=== PATIENT | female | born 1960 | race Caucasian/White ===

== ENCOUNTER 2019-06-14 08:52 | Inpatient (IN) | payer SELFPAY ==
[2019-06-14] VITALS (11 sets, daily range): BP systolic 114–143; BP diastolic 80–108
[~2019-06-14] VITALS: Ht 162.6 cm; Wt 45.0 kg
[2019-06-14] MEDS ORDERED: ONDANSETRON HCL 4 MG/2 ML VIAL ONE ×6 (09:08→22:22)
[2019-06-14] MEDS ORDERED: FAMOTIDINE/PF 20 MG/2 ML VIAL IV ONE (09:20)
[2019-06-14 09:38] LABS: BASOPHILS % (AUTO) 0.7 % (0.0-5.0); EOSINOPHILS % (AUTO) 0.5 % (0.0-8.0); HEMATOCRIT 46.1 % (36-48); LYMPHOCYTES % (AUTO) 15.4 % (21.0-51.0); MEAN CORPUSCULAR HEMOGLOBIN 30.7 pg (27.0-33.0); MEAN CORPUSCULAR VOLUME 92.9 fL (79-99); MONOCYTES % (AUTO) 5.1 % (3.0-13.0); NEUTROPHILS % (AUTO) 78.3 % (40.0-77.0); NUCLEATED RED BLOOD CELLS 0.1 % (0.0-0.19); PLATELET COUNT (AUTO) 426 K/uL (130-400); RED BLOOD CELL COUNT(AUTO) 4.96 MIL/uL (4.00-5.50); RED CELL DISTRIBUTION WIDTH 14.6 % (11.0-15.5); WHITE BLOOD COUNT (AUTO) 21.1 K/uL (4.8-10.8)
[2019-06-14 09:46] LABS: CREATININE 0.8 mg/dL (0.5-1.5); POTASSIUM 4.5 mmol/L (3.5-5.1)
[2019-06-14 09:50] LABS: ALBUMIN 4.1 g/dL (3.5-5.0); BILIRUBIN,TOTAL 0.3 mg/dL (0.2-1.0); TOTAL PROTEIN, SERUM 7.9 g/dL (6.0-8.3)
[2019-06-14] MEDS ORDERED: MORPHINE SULFATE 2 MG/ML 1ML SYG ONE ×2 (10:18→10:32)
[2019-06-14] MEDS ORDERED: NITROGLYCERIN 0.4 MG SL TAB SL ONE (10:18)
[2019-06-14] MEDS ORDERED: ASPIRIN 325 MG TABLET ONE (10:43)
[2019-06-14] MEDS ORDERED: ENALAPRILAT DIHYDRATE 1.25MG/ML 1ML VIAL IV ONE (10:43)
[2019-06-14] MEDS ORDERED: ENOXAPARIN SODIUM 60 MG/0.6 ML SQ ONE (10:43)
[2019-06-14] MEDS ORDERED: METOPROLOL TARTRATE 1 MG/ML 5ML VIAL IV ONE (10:44)
[2019-06-14] MEDS ORDERED: LIDOCAINE HCL 2% 20ML ONE (11:54)
[2019-06-14] MEDS ORDERED: IOHEXOL-350 50ML VIAL IV ONE (11:54)
[2019-06-14] MEDS ORDERED: HEPARIN SODIUM 1000UNIT/ML 10ML VIAL ONE (11:54)
[2019-06-14] MEDS ORDERED: IOHEXOL 350 MG/ML 100ML INFUS..BTL IV ONE (11:54)
[2019-06-14] MEDS ORDERED: NITROGLYCERIN 5 MG/ML 10 ML VIAL IV ONE (11:54)
[2019-06-14] MEDS ORDERED: VERAPAMIL HCL 2.5 MG/ML VIAL ONE (11:56)
[2019-06-14] MEDS ORDERED: FENTANYL CITRATE PF 50 MCG/1 ML 2ML VIAL ONE (12:06)
[2019-06-14] MEDS ORDERED: MIDAZOLAM HCL 1 MG/ML 2ML VIAL ONE (12:06)
[2019-06-14 12:25] LABS: INR 0.96 (0.85-1.15); PARTIAL THROMBOPLASTIN TIME 24.8 SEC (26.3-35.5); PROTHROMBIN TIME 10.1 SEC (9.6-11.6)
[2019-06-14] MEDS ORDERED: BIVALIRUDIN 250 MG/VIAL IV ONE (12:25)
[2019-06-14] MEDS ORDERED: NITROGLYCERIN 4.1 GM SPRAY TL ONE (12:28)
[2019-06-14] MEDS ORDERED: LABETALOL 20 MG/4 ML DISP.SYRIN IV ONE (12:49)
[2019-06-14] MEDS ORDERED: SODIUM CHLORIDE 0.9% 1000ML 1,000 ML IV SCH (12:53)
[2019-06-14] MEDS ORDERED: ASPIRIN 325 MG TABLET PO SCH (13:00)
[2019-06-14] MEDS ORDERED: LABETALOL HCL 5 MG/ML 20ML VIAL IV SCH (13:15)
--- NOTE | 2019-06-14 13:45 | NUR ---
POST PROCEDURE RECEIVED PT FROM BEE TENDER IN SEMI DINERO'S POSITION, A&OX3, CALM COOPERATIVE AND DOES NOT APPEAR TO BE IN ANY DISTRESS NOR ANY NEURO DEFICITS PRESENT. PT DENIES NAUSEA BUT DOES C/O INTERMITTENT ABDOMINAL PAIN. RT RADIAL PRESSURE DEVICE IN PLACE, PULSE PALPABLE, SITE DRY AND INTACT WITH NO OOZING OR HEMATOMA PRESENT. PT RESTING COMFORTABLY, CALL LIGHT WITHIN REACH.
[2019-06-14] MEDS: SODIUM CHLORIDE 0.9% 1000ML 1,000 ML IV SCH (14:15)
[2019-06-14] MEDS ORDERED: MORPHINE SULFATE 4 MG/1ML SYG ONE (14:17)
--- NOTE | 2019-06-14 15:00 | NUR ---
RADIAL PRESSURE BAND COMPLETE, RT WRIST SOFT NONTENDER WITH NO OOZING OR HEMATOMA PRESENT. STERILE DRESSING APPLIED, PT DENIES PAIN OR NUMBNESS TO RT HAND. CALL LIGHT WITHIN REACH, FAMILY AT BEDSIDE.
[2019-06-14] MEDS ORDERED: PHARMACY COMMUNICATION MISC SCH (15:15)
[2019-06-14] MEDS ORDERED: COMPOUND PO MISCELLANEOUS 1 EACH MISC MISC PRN (16:00)
[2019-06-14] MEDS: LIDOCAINE HCL 2% VISCOUS 30 ML, MAG HYDROX/AL HYDROX/SIMETH 30 ML, DICYCLOMINE HCL 20 MG PO PRN ×6 (16:12→20:54)
[2019-06-14 16:46] LABS: APPEARANCE,URINE Clear (CLEAR); BILIRUBIN,URINE Negative (NEGATIVE); COLOR,URINE Yellow (YELLOW); GLUCOSE, URINE (UA) Negative (NEGATIVE); KETONES,URINE Negative (NEGATIVE); LEUKOCYTE ESTERASE ,URINE Negative (NEGATIVE); NITRATE,URINE Negative (NEGATIVE); OCCULT BLOOD,URINE Negative (NEGATIVE); PROTEIN,URINE Negative (NEGATIVE)
[2019-06-14 17:00] LABS: TROPONIN I 3.94 ng/mL (0.00-0.06)
[2019-06-14] MEDS ORDERED: METOPROLOL TARTRATE 25 MG TAB ONE (17:13)
[2019-06-14] MEDS: METOPROLOL TARTRATE 25 MG TAB PO SCH (17:19)
[2019-06-14 17:21] LABS: AMPHET/METH SCREEN,URINE NEGATIVE (NEGATIVE); BARBITURATE SCREEN, URINE NEGATIVE (NEGATIVE); BENZODIAZEPINES SCREEN,URINE POSITIVE (NEGATIVE); CANNABINOID SCREEN,URINE POSITIVE (NEGATIVE); COCAINE SCREEN,URINE NEGATIVE (NEGATIVE); OPIATE SCREEN,URINE POSITIVE (NEGATIVE); PHENCYCLIDINE SCREEN,URINE NEGATIVE (NEGATIVE)
[2019-06-14] MEDS ORDERED: GABA-531 PO (17:25)
[2019-06-14] MEDS ORDERED: HYDR-4068 PO (17:25)
[2019-06-14] MEDS ORDERED: ESCI10TA54 PO (17:25)
[2019-06-14] MEDS ORDERED: DICL75TA5 PO (17:25)
[2019-06-14] MEDS ORDERED: LOSA1TAB37 PO (17:25)
[2019-06-14] MEDS ORDERED: ALPR1TAB7 PO (17:25)
[2019-06-14] MEDS: HYDROCODONE/ACETAMINOPHEN 10/325 MG TAB PO PRN ×2 (18:05→23:13)
--- NOTE | 2019-06-14 19:43 | NUR ---
ASSESSMENT AWAKE. RESTING IN BED. DENIES PAIN. RT WRIST DDI. PULSE STRONG WITH GOOD CMS TO HAND. ASSESSMENT COMPLETED. ENCOURAGED TO CALL FOR WANTS OR NEEDS. Addendum: 06/14/19 at 1944 by GLENIS SCHWAB RN RN Amended: Links added.
--- NOTE | 2019-06-14 20:29 | NUR ---
Added O2 2L N.C patients sat 86% on room air increased to 95% on O2. Addendum: 06/14/19 at 2325 by JULIO FERRO RT Amended: Links added.
--- NOTE | 2019-06-14 22:20 | NUR ---
VOMITING NO MEDICATION ORDERED FOR THIS. ALSO C/O PAIN NOT RELIEVED WITH PO MEDICATION. MONTSERRAT MARR CALLED AND ORDERS RECEIVED TO COVER THIS.
[2019-06-14 22:48] LABS: TROPONIN I 3.32 ng/mL (0.00-0.06)
[2019-06-14] MEDS ORDERED: MORPHINE SULFATE 2 MG/ML 1ML SYG IVP PRN (23:00)
[2019-06-15 01:51] LABS: TROPONIN I 3.26 ng/mL (0.00-0.06)
[2019-06-15 03:00] VITALS: BP 127/98
[2019-06-15] MEDS: ONDANSETRON HCL 4 MG/2 ML VIAL IVP PRN ×2 (03:43→21:54)
[2019-06-15] MEDS: SODIUM CHLORIDE 0.9% 1000ML 1,000 ML IV SCH ×2 (03:43→10:00)
[2019-06-15] MEDS: HYDROCODONE/ACETAMINOPHEN 10/325 MG TAB PO PRN ×4 (05:14→21:55)
[2019-06-15 05:41] LABS: BASOPHILS % (AUTO) 0.1 % (0.0-5.0); HEMATOCRIT 45.1 % (36-48); LYMPHOCYTES % (AUTO) 9.9 % (21.0-51.0); MEAN CORPUSCULAR HEMOGLOBIN 31.2 pg (27.0-33.0); MEAN CORPUSCULAR HGB CONC 33.3 g/dL (32.0-36.0); MEAN CORPUSCULAR VOLUME 93.8 fL (79-99); MONOCYTES % (AUTO) 6.4 % (3.0-13.0); NEUTROPHILS % (AUTO) 83.6 % (40.0-77.0); PLATELET COUNT (AUTO) 465 K/uL (130-400); RED CELL DISTRIBUTION WIDTH 15.1 % (11.0-15.5); WHITE BLOOD COUNT (AUTO) 24.7 K/uL (4.8-10.8)
[2019-06-15 07:00] VITALS: BP 128/98
[2019-06-15 07:01] LABS: ALBUMIN 3.3 g/dL (3.5-5.0); BILIRUBIN,TOTAL 0.7 mg/dL (0.2-1.0); CREATININE 0.9 mg/dL (0.5-1.5); POTASSIUM 3.7 mmol/L (3.5-5.1); TOTAL PROTEIN, SERUM 6.8 g/dL (6.0-8.3)
[2019-06-15 07:31] LABS: TROPONIN I 2.12 ng/mL (0.00-0.06)
[2019-06-15] MEDS: METOPROLOL TARTRATE 25 MG TAB PO SCH ×2 (08:57→20:55)
[2019-06-15] MEDS: ASPIRIN 81MG TAB.CHEW PO SCH (08:57)
[2019-06-15] MEDS: LISINOPRIL 5 MG TABLET PO SCH (08:57)
[2019-06-15] MEDS: PANTOPRAZOLE SODIUM 40 MG TABLET.DR PO SCH ×2 (08:57→16:03)
[2019-06-15] MEDS ORDERED: LISINOPRIL 10 MG TABLET PO SCH (09:00)
[2019-06-15 10:33] LABS: AMYLASE 91 U/L (25-115); LIPASE 233 U/L (114-286)
[2019-06-15] MEDS: LIDOCAINE HCL 2% VISCOUS 30 ML, MAG HYDROX/AL HYDROX/SIMETH 30 ML, DICYCLOMINE HCL 20 MG PO PRN ×3 (10:33)
[2019-06-15] MEDS: CEFTRIAXONE SODIUM 1 GM IVP SCH ×2 (10:42→20:55)
[2019-06-15 11:48] VITALS: BP 101/75
--- NOTE | 2019-06-15 15:35 | NUR ---
RD NOTIFICATION Primary Diagnosis: NStemi. Hx: Back pain, CVA. BMI is 17.2; classified as underweight. Current diet: pt currently NPO, pending ultrasound due to gastric pain as per nurse. LBM: 06/14. Skin is intact, no edema present. Meds: Lopressor, Asprin, Prinivil, Protonix, [place], Zofran. Labs: WBC 24.7, RG 142, ALB 3.3, LDL 100, AST 66, ALT 88, BNP 183, Troponin 2.12. RD recommends to continue current diet, advance diet as tolerated when medically feasible. Once pts diet is advanced, RD will provide Heart Healthy diet education. RD will continue to monitor and follow up as needed. Please notify RD if any other nutritional concerns arise. Thank you. Addendum: 06/15/19 at [address] RD Amended: Links added.
[2019-06-15 16:00] VITALS: BP 96/72
[2019-06-15 19:38] VITALS: BP 145/77
[2019-06-15] MEDS: ATORVASTATIN CALCIUM 40 MG TABLET PO SCH (20:55)
--- NOTE | 2019-06-15 22:09 | NUR ---
NAUSEA/VOMITING EMESIS X1 APPROXIMATELY 200ML STATES SHE HAD DRANK A SPRITE. EMESIS IS LIGHT GREEN IN COLOR. ALSO REPORTS SHE HAS BEEN VOMITING FOR OVER 8 YEARS "NEVER GOT BETTER AFTER MY ABDOMINAL SURGERY AND I VOMIT OFF AND ON". ZOFRAN 4MG IV GIVEN PER PRN ORDER.
[2019-06-15 23:33] VITALS: BP 106/72
[2019-06-16] MEDS: HYDROCODONE/ACETAMINOPHEN 10/325 MG TAB PO PRN (03:41)
[2019-06-16 03:58] VITALS: BP 102/72
[2019-06-16 05:38] LABS: BASOPHILS % (AUTO) 0.1 % (0.0-5.0); HEMATOCRIT 36.8 % (36-48); LYMPHOCYTES % (AUTO) 11.1 % (21.0-51.0); MEAN CORPUSCULAR HGB CONC 33.1 g/dL (32.0-36.0); MEAN CORPUSCULAR VOLUME 93.5 fL (79-99); MONOCYTES % (AUTO) 7.1 % (3.0-13.0); NEUTROPHILS % (AUTO) 81.7 % (40.0-77.0); PLATELET COUNT (AUTO) 282 K/uL (130-400); RED BLOOD CELL COUNT(AUTO) 3.94 MIL/uL (4.00-5.50); RED CELL DISTRIBUTION WIDTH 14.7 % (11.0-15.5); WHITE BLOOD COUNT (AUTO) 16.8 K/uL (4.8-10.8)
[2019-06-16 07:23] VITALS: BP 108/77
[2019-06-16] MEDS: LISINOPRIL 5 MG TABLET PO SCH (07:45)
[2019-06-16] MEDS: PANTOPRAZOLE SODIUM 40 MG TABLET.DR PO SCH ×2 (07:45→16:30)
[2019-06-16] MEDS: ASPIRIN 81MG TAB.CHEW PO SCH (07:45)
[2019-06-16] MEDS: METOPROLOL TARTRATE 25 MG TAB PO SCH ×3 (07:45→20:47)
[2019-06-16] MEDS: CEFTRIAXONE SODIUM 1 GM IVP SCH ×2 (07:46→21:42)
[2019-06-16] MEDS: ONDANSETRON HCL 4 MG/2 ML VIAL IVP PRN (08:24)
[2019-06-16] MEDS ORDERED: GADODIAMIDE 10 MMOL/20 ML VIAL IV ONE (08:50)
[2019-06-16] MEDS: KETOROLAC TROMETHAMINE 15MG/ML IV PRN ×3 (09:16→21:43)
[2019-06-16 09:17] LABS: ALBUMIN 2.8 g/dL (3.5-5.0); BILIRUBIN,TOTAL 0.5 mg/dL (0.2-1.0); CREATININE 0.7 mg/dL (0.5-1.5); POTASSIUM 4.2 mmol/L (3.5-5.1); TOTAL PROTEIN, SERUM 5.9 g/dL (6.0-8.3)
[2019-06-16] MEDS ORDERED: LORAZEPAM 2 MG/ML 1 ML VIAL IVP SCH (09:30)
[2019-06-16 11:13] VITALS: BP 77/51
[2019-06-16] MEDS: SODIUM CHLORIDE 0.9% 1000ML 1,000 ML IV SCH (11:32)
[2019-06-16] MEDS: METOCLOPRAMIDE 10 MG/2 ML VIAL IVP SCH ×2 (11:33→17:27)
--- NOTE | 2019-06-16 12:18 | NUR ---
DC PLAN VISITED WITH PATIENT. PATIENT LIVES WITH SPOUSE. INDEPENDENT ABLE TO PERFORM ADL'S. PATIENT HAS NO SERVICES. USES A CANE. FEELS SAFE TO RETURN HOME. PATIENT SAYS SISTER MIGHT BE STAY WITH HER. Addendum: 06/16/19 at 1221 by NELIDA FITCH RN CM Amended: Links added.
--- NOTE | 2019-06-16 12:21 | NUR ---
RD Follow Up Note Pt NPO at time of screen. Clear Liquid diet resumed, RD to monitor intake. Unknown LBM. Report of chronic nausea/emesis. Pt with Hx of Hemicolectomy, current possible cholecystitis as per EMR. Pt monitored labs: Glu 111, Alb 2.8, LDL 100. Pending HIDA scan. When medically feasible, recommend to advance diet as tolerated to Low Fat, Heart Healthy Diet. RD to continue to monitor. Please notify RD as additional nutrition concerns arise. Thank you. Addendum: 06/16/19 at [address] RD Amended: Links added.
[2019-06-16 13:05] VITALS: BP 102/63
[2019-06-16] MEDS: METRONIDAZOLE 500MG/100ML BAG 100 ML IV SCH ×2 (13:12→21:43)
[2019-06-16 15:12] VITALS: BP 85/57
--- NOTE | 2019-06-16 17:05 | NUR ---
STILL AWAITING RESULTS OF MRCP. HIDA SCAN PENDING TO BE DONE. RESULTS WILL BE CALLED TO DR. DIAZ ONCE AVAILABLE.
--- NOTE | 2019-06-16 17:44 | NUR ---
PAGED DR. DIAZ TO RELAY RESULTS OF MRCP. AWAITING MD'S CALLBACK.
--- NOTE | 2019-06-16 17:53 | NUR ---
PATIENT TAKEN TO [facility] FOR HIDA SCAN.
--- NOTE | 2019-06-16 18:25 | NUR ---
DR. DIAZ CALLED BACK AND RELAYED TO MD THE RESULTS OF MRCP AND HIDA SCAN. PER MD, NO NEED FOR SCOPE AT THIS TIME. PATIENT WILL NEED SURGERY CONSULT WITH DR. FIELDS FOR GALLBLADDER REMOVAL.
[2019-06-16 19:36] VITALS: BP 89/57
--- NOTE | 2019-06-16 20:10 | NUR ---
STATUS PATIENT RETURNED FROM HIDA SCAN. AWAKE AND ALERT. PATIENT COMPLAINT OF CHRONIC LOWER BACK PAIN DUE TO MOVEMENT. REQUESTING PAIN MEDICATION AND MEDICATION FOR ANXIETY. INFORMED THAT BLOOD PRESSURE IS LOW AND WOULD NOT BE ABLE TO GIVE ANXIOLYTIC. ACKNOWLEDGED INFO. NOTIFIED OF TIME FOR NEXT PAIN MEDICATION DUE. OFFERED AND PLACED HEAT PACK. POSITIONED TO COMFORT. PATIENT SATISFIED.
[2019-06-16] MEDS: ATORVASTATIN CALCIUM 40 MG TABLET PO SCH (20:11)
[2019-06-16 20:29] LABS: HEMOGLOBIN A1C 5.6 % (4.0-6.0)
--- NOTE | 2019-06-16 22:50 | NUR ---
PIV PIV WAS DISCONTINUED BY PATIENT WHILE TRYING TO TURN. NEW IV WAS STARTED. ATTEMPT X1. TOLERATED.WELL.
[2019-06-17] VITALS (7 sets, daily range): BP systolic 80–110; BP diastolic 51–80
[2019-06-17] MEDS: METOCLOPRAMIDE 10 MG/2 ML VIAL IVP SCH ×5 (00:09→23:49)
[2019-06-17 03:48] LABS: BASOPHILS % (AUTO) 0.5 % (0.0-5.0); EOSINOPHILS % (AUTO) 0.1 % (0.0-8.0); LYMPHOCYTES % (AUTO) 17.3 % (21.0-51.0); MEAN CORPUSCULAR HEMOGLOBIN 30.9 pg (27.0-33.0); MEAN CORPUSCULAR HGB CONC 33.3 g/dL (32.0-36.0); MEAN CORPUSCULAR VOLUME 92.9 fL (79-99); MONOCYTES % (AUTO) 8.1 % (3.0-13.0); PLATELET COUNT (AUTO) 210 K/uL (130-400); RED BLOOD CELL COUNT(AUTO) 3.01 MIL/uL (4.00-5.50); RED CELL DISTRIBUTION WIDTH 14.6 % (11.0-15.5)
[2019-06-17 04:06] LABS: ALBUMIN 2.2 g/dL (3.5-5.0); BILIRUBIN,TOTAL 0.3 mg/dL (0.2-1.0); CREATININE 0.7 mg/dL (0.5-1.5); POTASSIUM 3.5 mmol/L (3.5-5.1); TOTAL PROTEIN, SERUM 4.9 g/dL (6.0-8.3)
[2019-06-17] MEDS: SODIUM CHLORIDE 0.9% 1000ML 1,000 ML IV SCH ×2 (04:15→08:55)
[2019-06-17] MEDS: METRONIDAZOLE 500MG/100ML BAG 100 ML IV SCH ×3 (05:25→21:35)
[2019-06-17] MEDS: KETOROLAC TROMETHAMINE 15MG/ML IV PRN ×3 (05:25→17:08)
[2019-06-17] MEDS ORDERED: POTASSIUM CHLORIDE 20 MEQ ERTAB PO PRN (05:30)
[2019-06-17] MEDS ORDERED: POTASSIUM CHLORIDE 10% ELIXIR 20 MEQ/15 ML UDCUP PO PRN (05:30)
[2019-06-17] MEDS ORDERED: LIDOCAINE HCL-MPF 1% 2ML VIAL IV PRN (05:30)
[2019-06-17] MEDS ORDERED: POTASSIUM CHLORIDE 20MEQ/100ML 100 ML IV PRN (05:30)
--- NOTE | 2019-06-17 05:33 | NUR ---
POTASSIUM PATIENT POTASSIUM 3.5. HOSPITALIST DIESEL ELECTRICIAN PAGED. HYPOKALEMIA PROTOCOL ORDERED
[2019-06-17] MEDS: PANTOPRAZOLE SODIUM 40 MG TABLET.DR PO SCH (06:50)
[2019-06-17] MEDS: CEFTRIAXONE SODIUM 1 GM IVP SCH ×2 (08:27→21:30)
[2019-06-17] MEDS: ASPIRIN 81MG TAB.CHEW PO SCH (08:28)
[2019-06-17] MEDS: METOPROLOL TARTRATE 25 MG TAB PO SCH ×2 (08:28→21:30)
--- NOTE | 2019-06-17 12:49 | NUR ---
RE: POSITIVE OCCULT BLOOD PAGED DR. DIAZ. SPOKE WITH VENICE. AWAITING CALLBACK AT EXT [phone].
--- NOTE | 2019-06-17 13:51 | NUR ---
RE: POSITIVE OCCULT BLOOD DR. DIAZ CALLED BACK AND PER MD, THE IMMEDIATE CONCERN AT THIS TIME IS HER GALLBLADDER. WILL NOT SCOPE AT THIS TIME.
[2019-06-17 15:11] LABS: PARTIAL THROMBOPLASTIN TIME 31.7 SEC (26.3-35.5); PROTHROMBIN TIME 10.5 SEC (9.6-11.6)
[2019-06-17 17:00] LABS: HEMATOCRIT 27.4 % (36-48)
[2019-06-17] MEDS ORDERED: PHARMACY COMMUNICATION MISC SCH (17:45)
--- NOTE | 2019-06-17 20:20 | NUR ---
MD KEELY ABRAMS AT THE BEDSIDE. EXPLAINED TO PATIENT THAT SHE IS HIGH CARDIAC RISK FOR SURGERY AND WILL HAVE A CHOLECYSTOSTOMY TUBE PLACED BY IR 06/18/2019
[2019-06-17] MEDS: ATORVASTATIN CALCIUM 40 MG TABLET PO SCH (21:00)
[2019-06-17] MEDS ORDERED: PANTOPRAZOLE 40 MG/VIAL IVP SCH (21:00)
--- NOTE | 2019-06-17 21:37 | NUR ---
LIPITOR PATIENT REFUSED MEDICATION. STATED THAT POSSIBLY IS REASON THAT IS ACHY HAS TAKEN IN THE PAST AND EXPERIENCED MUSCLE SORENESS.
--- NOTE | 2019-06-17 22:15 | NUR ---
CONSENT CONSENT SIGNED PATIENT HAD NO ADDITIONAL QUESTIONS
[2019-06-17] MEDS: HYDROMORPHONE HCL 2 MG/ML VIAL IVP PRN (22:25)
[2019-06-18] VITALS (10 sets, daily range): BP systolic 101–126; BP diastolic 67–86
[2019-06-18] MEDS: SODIUM CHLORIDE 0.9% 1000ML 1,000 ML IV SCH ×2 (04:19→15:33)
[2019-06-18 04:32] LABS: BASOPHILS % (AUTO) 0.5 % (0.0-5.0); EOSINOPHILS % (AUTO) 0.5 % (0.0-8.0); HEMATOCRIT 27.9 % (36-48); LYMPHOCYTES % (AUTO) 19.8 % (21.0-51.0); MEAN CORPUSCULAR HEMOGLOBIN 31.4 pg (27.0-33.0); MEAN CORPUSCULAR HGB CONC 33.3 g/dL (32.0-36.0); MEAN CORPUSCULAR VOLUME 94.1 fL (79-99); MONOCYTES % (AUTO) 7.3 % (3.0-13.0); NEUTROPHILS % (AUTO) 71.9 % (40.0-77.0); NUCLEATED RED BLOOD CELLS 0.1 % (0.0-0.19); PLATELET COUNT (AUTO) 197 K/uL (130-400); RED BLOOD CELL COUNT(AUTO) 2.97 MIL/uL (4.00-5.50); RED CELL DISTRIBUTION WIDTH 14.8 % (11.0-15.5); WHITE BLOOD COUNT (AUTO) 8.9 K/uL (4.8-10.8)
[2019-06-18 04:46] LABS: ALBUMIN 2.3 g/dL (3.5-5.0); BILIRUBIN,TOTAL 0.2 mg/dL (0.2-1.0); CREATININE 0.6 mg/dL (0.5-1.5); POTASSIUM 4.4 mmol/L (3.5-5.1); TOTAL PROTEIN, SERUM 5.2 g/dL (6.0-8.3)
[2019-06-18] MEDS: METRONIDAZOLE 500MG/100ML BAG 100 ML IV SCH ×3 (05:07→22:09)
[2019-06-18] MEDS: METOCLOPRAMIDE 10 MG/2 ML VIAL IVP SCH ×3 (05:08→18:08)
[2019-06-18] MEDS: HYDROMORPHONE HCL 2 MG/ML VIAL IVP PRN (08:24)
[2019-06-18] MEDS: PANTOPRAZOLE SODIUM 40 MG TABLET.DR PO SCH ×2 (09:00→19:55)
[2019-06-18] MEDS: ASPIRIN 81MG TAB.CHEW PO SCH (09:00)
[2019-06-18] MEDS: METOPROLOL TARTRATE 25 MG TAB PO SCH ×2 (09:00→19:55)
[2019-06-18] MEDS: CEFTRIAXONE SODIUM 1 GM IVP SCH ×2 (11:04→22:08)
[2019-06-18] MEDS ORDERED: FENTANYL CITRATE PF 50 MCG/1 ML 2ML VIAL ONE (13:34)
[2019-06-18] MEDS ORDERED: LIDOCAINE HCL 2% 20ML ONE (13:34)
[2019-06-18] MEDS ORDERED: IODIXANOL 320 MG/ML 100 ML VIAL ONE (13:34)
[2019-06-18] MEDS ORDERED: MIDAZOLAM HCL 1 MG/ML 2ML VIAL ONE (13:34)
--- NOTE | 2019-06-18 13:40 | NUR ---
Pt taken for drain by IR
--- NOTE | 2019-06-18 14:55 | NUR ---
Recieved report from LE Singh. patient had a 10Fr cholecystomy tube placed by Dr. Paz. Cultures sent. Flush w/10cc NS q 12hours. 0.5 Versed and 50mcg of Fentanyl given. last VS 88 SR, 121/86 91% 2L.
--- NOTE | 2019-06-18 15:10 | NUR ---
Patient returned from procedure. ALert and awake x4. Dressing to RLQ Clean dry and intact. bed placed to lowest position. Call light placed within reach. Instructed bedrest until 1710. Call nurse upon getting up. Patient verbalized understanding.
--- NOTE | 2019-06-18 15:26 | NUR ---
Nutrition f/u: At time of RD visit pt in Radiology. RD to return to provide Low Fat and High Fiber diet education. As per EMR, pt with Capo MARTINEZ. Recommend monitoring. Recommendations: RD to return for diet education. When medically feasible, advance diet therapy to GI Soft/[place] diet. Monitor PO intake and tolerance when diet advances. Consult RD as nutrition concerns arise. Addendum: 06/18/19 at [address] RD Amended: Links added.
[2019-06-18 15:52] LABS: HEMATOCRIT 31.6 % (36-48)
[2019-06-18] MEDS: ATORVASTATIN CALCIUM 40 MG TABLET PO SCH (19:57)
[2019-06-18] MEDS: ACETAMINOPHEN EXTRA STRENGTH 500 MG TABLET PO PRN (19:57)
--- NOTE | 2019-06-18 20:00 | NUR ---
PM NOTE Awake, alert, and oriented x3. Does not appear in any distress. Cholecystectomy tube drain to right upper quadrant in place, dressing clean and intact, minimal serosanguineous output noted. Assisted to bathroom, steady gait. Instructed on use of call light for any assistance. Sinus mechanism in 90s on telemetry monitoring.
[2019-06-19 00:18] VITALS: BP 115/79
[2019-06-19] MEDS: ACETAMINOPHEN EXTRA STRENGTH 500 MG TABLET PO PRN (01:49)
[2019-06-19] MEDS: SODIUM CHLORIDE 0.9% 1000ML 1,000 ML IV SCH (01:51)
[2019-06-19 03:25] VITALS: BP 109/69
--- NOTE | 2019-06-19 03:30 | NUR ---
REFUSAL Pt refused to get lab draws at this time, will reattempt later this am.
[2019-06-19] MEDS: METRONIDAZOLE 500MG/100ML BAG 100 ML IV SCH (05:34)
[2019-06-19] MEDS: METOCLOPRAMIDE 10 MG/2 ML VIAL IVP SCH ×2 (05:42)
[2019-06-19 07:00] VITALS: BP 121/76
--- NOTE | 2019-06-19 08:05 | NUR ---
PATIENT SIGNED OUT AMA. SHE VERBALIZED HOW DISPLEASED SHE WAS NOT HAVING BEEN MEDICATED APPROPRIATELY FOR PAIN. PATIENT SAID THAT SHE HAS CHRONIC BACK PAIN AND THE PAIN MEDICATION SHE HAS BEEN REQUESTING FOR IS NOT FOR THE GALLBLADDER/CHOLECYSTOSTOMY TUBE SITE BUT FOR HER CHRONIC PAIN. SHE SAID THAT TYLENOL DOES NOT WORK. I INFORMED OSIEL CLINTON CERTIFIED PHLEBOTOMY TECHNICIAN ABOUT THIS AND SAID TO LET PATIENT KNOW THAT WE WILL ORDER FOR A ONE TIME DOSE OF HYDROCODONE AND THAT DR. WALTON WILL FOLLOW UP ON HER. PATIENT STILL REFUSED TO STAY. I INFORMED PATIENT THAT SHE JUST HAD HER CHOLECYSTOSTOMY TUBE PLACED YESTERDAY AND IT WOULD NEED MONITORING. PATIENT VOICED THAT SHE HAS HAD MULTIPLE SURGERIES IN THE PAST THAT REQUIRED FOR HER TO CARE FOR TUBES/DRAINS WELL. INFORMED PATIENT OF THE RISKS AND CONSEQUENCES INVOLVED IN LEAVING THE HOSPITAL AT THIS TIME ESPECIALLY WITH A CHOLECYSTOSTOMY TUBE AND THE BENEFITS OF CONTINUED TREATMENT AND HOSPITALIZATION BUT PATIENT WAS ADAMANT TO LEAVE. PIV REMOVED. TIP WAS INTACT. TELE REMOVED AND RETURNED. ALL BELONGINGS WERE PACKED.
--- NOTE | 2019-06-19 08:05 | NUR ---
PATIENT REFUSED FULL SYSTEMIC ASSESSMENT BEFORE LEAVING AMA. I WAS ABLE TO AT LEAST CHECK THE CHOLECYSTOSTOMY TUBE SITE AND IT WAS INTACT. ACCORDION BAG HAS ABOUT 50ML OF SANGUENOUS DRAINAGE.
== END 2019-06-19 08:05 | disposition left against medical advice (07) | DRG 280 ==
LOC: EDH 08:52 → 2BH 08:53 → OBSVTOIN 08:53 → 2AH 06-15 17:46
PROVIDERS: ADMIT Internal Medicine; ATTEND Internal Medicine
PROC: B2151ZZ Fluoroscopy of Left Heart using Low Osmolar Contrast (ICD-10-PCS; principal; 2019-06-14)
PROC: B2111ZZ Fluoroscopy of Multiple Coronary Arteries using Low Osmolar Contrast (ICD-10-PCS; 2019-06-14)
PROC: 4A023N7 Measurement of Cardiac Sampling and Pressure, Left Heart, Percutaneous Approach (ICD-10-PCS; 2019-06-14)
PROC: 0F9430Z Drainage of Gallbladder with Drainage Device, Percutaneous Approach (ICD-10-PCS; 2019-06-18)
DX: I21.4 Non-ST elevation (NSTEMI) myocardial infarction (principal); I50.43 Acute on chronic combined systolic (congestive) and diastolic (congestive) heart failure; K80.00 Calculus of gallbladder with acute cholecystitis without obstruction; E78.5 Hyperlipidemia, unspecified; F17.210 Nicotine dependence, cigarettes, uncomplicated; G89.4 Chronic pain syndrome; I11.0 Hypertensive heart disease with heart failure; I73.9 Peripheral vascular disease, unspecified; K83.8 Other specified diseases of biliary tract; M54.2 Cervicalgia; M54.9 Dorsalgia, unspecified; Z53.21 Procedure and treatment not carried out due to patient leaving prior to being seen by health care provider; E78.00 Pure hypercholesterolemia, unspecified; R73.9 Hyperglycemia, unspecified; Z82.3 Family history of stroke; Z86.73 Personal history of transient ischemic attack (TIA), and cerebral infarction without residual deficits
CPT/HCPCS: 10030; 36415; 47490; 71045; 74176; 74183; 76705; 78226; 80053; 80061; 80305; 81003; 82150; 82270; 82550; 83036; 83690; 83874; 83880; 84484; 85014; 85018; 85025; 85610; 85730; 87071; 87205; 93005; 93306; 93458; 99156; 99157; 99291; A9537; A9579; C1769; C1894; C9113; G0378; J0583; J0696; J1170; J1644; J1650; J1885; J2060; J2250; J2270; J2405; J2765; J3010; J3490; J7030; Q9967

== ENCOUNTER 2019-07-30 11:22 | Day surgery (SDC) | payer SELFPAY ==
[2019-07-29 11:06] VITALS: BP 96/65
[2019-07-30] VITALS (17 sets, daily range): BP systolic 66–171; BP diastolic 47–85
[~2019-07-30] VITALS: Ht 165.1 cm; Wt 38.6 kg
[~2019-07-30 11:22] MED LIST: ALPR1TAB7 PO; ESCI10TA54 PO; GABA-531 PO; HYDR-4068 PO; LOSA1TAB37 PO; METO-408 PO; ROSUVASTATIN PO
[2019-07-30] MEDS ORDERED: PROPOFOL 10 MG/ML 20ML VIAL IV ONE (11:58)
[2019-07-30] MEDS ORDERED: LIDOCAINE PF 2% 5ML ABBOJECT ONE (11:58)
[2019-07-30] MEDS ORDERED: EPHEDRINE SULFATE 50 MG/ML AMPULE ONE ×2 (11:58→13:40)
[2019-07-30] MEDS ORDERED: SUCCINYLCHOLINE 200MG/10ML SYR ONE (11:58)
[2019-07-30] MEDS ORDERED: ROCURONIUM 10MG/1ML SYR 10 MG/ML ML ONE (11:58)
[2019-07-30] MEDS ORDERED: FENTANYL CITRATE PF 50 MCG/1 ML 2ML VIAL ONE ×3 (11:58→14:10)
[2019-07-30] MEDS ORDERED: BUPIVACAINE/PF 0.25% 30ML VIAL IJ ONE ×2 (12:07→13:05)
[2019-07-30] MEDS ORDERED: LIDOCAINE 1%-EPI 1:100,000 20 ML VIAL IJ ONE ×2 (12:07→13:05)
[2019-07-30 12:59] LABS: CREATININE 0.7 mg/dL (0.5-1.5); HEMATOCRIT 37.3 % (36-48); MEAN CORPUSCULAR HEMOGLOBIN 30.4 pg (27.0-33.0); MEAN CORPUSCULAR HGB CONC 33.7 g/dL (32.0-36.0); MEAN CORPUSCULAR VOLUME 90.2 fL (79-99); PLATELET COUNT (AUTO) 387 K/uL (130-400); POTASSIUM 3.1 mmol/L (3.5-5.1); RED BLOOD CELL COUNT(AUTO) 4.13 MIL/uL (4.00-5.50); RED CELL DISTRIBUTION WIDTH 14.3 % (11.0-15.5); WHITE BLOOD COUNT (AUTO) 7.3 K/uL (4.8-10.8)
[2019-07-30] MEDS ORDERED: BACITRACIN 50,000 UNIT VIAL ONE (13:05)
[2019-07-30] MEDS ORDERED: MIDAZOLAM HCL 1 MG/ML 2ML VIAL ONE (13:31)
[2019-07-30] MEDS ORDERED: CEFAZOLIN SODIUM 1 GM VIAL IVP ONE (13:45)
[2019-07-30] MEDS ORDERED: METRONIDAZOLE 500MG/100ML BAG 100 ML ONE (13:49)
[2019-07-30 13:59] LABS: EOSINOPHILS % (MANUAL) 3 % (1-6); LYMPHOCYTES % (MANUAL) 42 % (22-44); MAN.DIFF COMMENT-IMPRESSION MANUAL DIFFERENTIAL; MONOCYTES % (MANUAL) 1 % (2-9); PLATELET MORPHOLOGY COMMENT ADEQUATE; REACTIVE LYMPHOCYTES 1 % (0-0); SEGMENTED NEUTROPHILS % 53 % (40-70)
[2019-07-30] MEDS ORDERED: LABETALOL HCL 5 MG/ML 20ML VIAL IV ONE (14:22)
[2019-07-30] MEDS ORDERED: GLYCOPYRROLATE 1 MG/5 ML SYRINGE ONE (14:55)
[2019-07-30] MEDS ORDERED: NEOSTIGMINE 5MG/5ML SYR IV ONE (14:55)
[2019-07-30] MEDS ORDERED: MEPERIDINE-PF 25 MG/ML SYG ONE ×2 (15:20→15:29)
--- NOTE | 2019-07-30 17:15 | NUR ---
PT. LEFT VIA WHEELCHAIR IN PVT CAR, RX GIVEN TO AND WAS INFORMED TO CALL FRIDAY FOR F/U APPT.
== END 2019-07-30 17:15 | disposition home or self-care (01) ==
LOC: DAH 11:22
PROVIDERS: ADMIT Internal Medicine; ATTEND Surgery
DX: K80.12 Calculus of gallbladder with acute and chronic cholecystitis without obstruction (principal); K42.9 Umbilical hernia without obstruction or gangrene; K66.0 Peritoneal adhesions (postprocedural) (postinfection); K82.8 Other specified diseases of gallbladder; J44.9 Chronic obstructive pulmonary disease, unspecified; I25.2 Old myocardial infarction; K21.9 Gastro-esophageal reflux disease without esophagitis; M19.90 Unspecified osteoarthritis, unspecified site; G62.9 Polyneuropathy, unspecified; F17.210 Nicotine dependence, cigarettes, uncomplicated; Z79.899 Other long term (current) drug therapy; Z82.49 Family history of ischemic heart disease and other diseases of the circulatory system; Z86.73 Personal history of transient ischemic attack (TIA), and cerebral infarction without residual deficits; Z98.890 Other specified postprocedural states; Z90.49 Acquired absence of other specified parts of digestive tract
CPT/HCPCS: 36415; 47562; 49587; 80048; 85025; 88302; 88304; 93005 ×2; A4215; A4221; A4222; A4223; A4450; A4452; A4649 ×8; A4663; A4930; A6260; C1713; C1769 ×3; J0330; J0690; J2001; J2175 ×2; J2250; J2704; J2710; J3010 ×2; J3490 ×6; J7030; J7120

== ENCOUNTER 2019-08-03 03:44 | Inpatient (IN) | payer OTHER, SELFPAY ==
[2019-08-03] VITALS (14 sets, daily range): BP systolic 0–170; BP diastolic 0–99
[2019-08-03] MEDS ORDERED: NOREPINEPHRINE BITARTRATE 1 MG/1 ML ML IV ONE ×2 (04:03→09:41)
[2019-08-03] MEDS ORDERED: SODIUM CHLORIDE 0.9% 1000ML 1,000 ML IV ONE ×2 (04:03→09:30)
[2019-08-03 04:35] LABS: CREATININE 1.9 mg/dL (0.5-1.5)
[2019-08-03] MEDS ORDERED: ZOSYN 3.375GM+NS 50ML 50 ML IV ONE (04:35)
[2019-08-03] MEDS ORDERED: SODIUM CHLORIDE 0.9% 1000ML 2,000 ML IV ONE (04:35)
[2019-08-03] MEDS ORDERED: LEVOFLOXACIN 500 MG/D5W 100 ML 100 ML ONE (04:35)
[2019-08-03 04:43] LABS: BASOPHILS % (AUTO) 0.2 % (0.0-5.0); EOSINOPHILS % (AUTO) 0.1 % (0.0-8.0); HEMATOCRIT 29.8 % (36-48); LYMPHOCYTES % (AUTO) 8.5 % (21.0-51.0); MEAN CORPUSCULAR HEMOGLOBIN 30.7 pg (27.0-33.0); MEAN CORPUSCULAR HGB CONC 31.6 g/dL (32.0-36.0); MEAN CORPUSCULAR VOLUME 97.1 fL (79-99); MONOCYTES % (AUTO) 7.3 % (3.0-13.0); NEUTROPHILS % (AUTO) 83.9 % (40.0-77.0); PLATELET COUNT (AUTO) 418 K/uL (130-400); RED BLOOD CELL COUNT(AUTO) 3.07 MIL/uL (4.00-5.50); RED CELL DISTRIBUTION WIDTH 15.3 % (11.0-15.5); WHITE BLOOD COUNT (AUTO) 11.8 K/uL (4.8-10.8)
[2019-08-03 04:50] LABS: BILIRUBIN,TOTAL 1.7 mg/dL (0.2-1.0); TOTAL PROTEIN, SERUM 5.8 g/dL (6.0-8.3); TROPONIN I 0.05 ng/mL (0.00-0.06)
[2019-08-03 04:51] LABS: INR 1.57 (0.85-1.15); PARTIAL THROMBOPLASTIN TIME 42.9 SEC (26.3-35.5); PROTHROMBIN TIME 16.2 SEC (9.6-11.6)
[2019-08-03 04:52] LABS: ACETAMINOPHEN 26 mcg/mL (10-30); SALICYLATE < 2.8 mg/dL (2.8-20.0)
[2019-08-03] MEDS ORDERED: PROPOFOL 1000 MG/100 ML 0 ML IV ONE (04:57)
[2019-08-03 05:12] LABS: APPEARANCE,URINE Clear (CLEAR); BILIRUBIN,URINE Small (NEGATIVE); COLOR,URINE Dark Yellow (YELLOW); GLUCOSE, URINE (UA) Negative (NEGATIVE); KETONES,URINE Trace mg/dL (NEGATIVE); LEUKOCYTE ESTERASE ,URINE Trace (NEGATIVE); NITRATE,URINE Negative (NEGATIVE); OCCULT BLOOD,URINE Negative (NEGATIVE); PH,URINE 5.5 (5.0-8.0); PROTEIN,URINE POS 2+ mg/dL (NEGATIVE)
[2019-08-03 05:21] LABS: AMPHET/METH SCREEN,URINE NEGATIVE (NEGATIVE); BARBITURATE SCREEN, URINE NEGATIVE (NEGATIVE); BENZODIAZEPINES SCREEN,URINE POSITIVE (NEGATIVE); CANNABINOID SCREEN,URINE POSITIVE (NEGATIVE); COCAINE SCREEN,URINE NEGATIVE (NEGATIVE); OPIATE SCREEN,URINE POSITIVE (NEGATIVE); PHENCYCLIDINE SCREEN,URINE NEGATIVE (NEGATIVE)
[2019-08-03 05:46] LABS: AMORPHOUS SEDIMENT,UR Moderate /LPF (None Seen); BACTERIA,URINE Few /HPF (None Seen); MUCUS,URINE Moderate LPF (None Seen); RBC,URINE 0-1 /HPF (0-1); SQUAMOUS EPITHELIAL CELL,UR Few /HPF (0-2)
[2019-08-03 06:30] LABS: ABG BASE EXCESS -18.5 mmol/L (-2.0-3.0); ABG HCO3 8.8 mmol/L (21.0-28.0); ABG OXYGEN SATURATION 94.7 % (95.0-99.0); ABG PCO2 26 mmHg (32-45)
[2019-08-03] MEDS ORDERED: SODIUM BICARB 50MEQ 50ML VIAL ONE ×2 (07:08→15:00)
[2019-08-03] MEDS ORDERED: SODIUM CHLORIDE 0.9% 1000ML 1,000 ML IV SCH (08:29)
[2019-08-03] MEDS ORDERED: VANCOMYCIN 1GM+NS 250ML 250 ML IV SCH (08:30)
[2019-08-03] MEDS ORDERED: ONDANSETRON HCL 4 MG/2 ML VIAL IV PRN (08:30)
[2019-08-03] MEDS ORDERED: VANCOMYCIN PROTOCOL PER PHARMACY IV PRN (08:30)
[2019-08-03] MEDS ORDERED: POTASSIUM CHLORIDE 20MEQ/100ML 100 ML IV PRN (08:45)
[2019-08-03] MEDS ORDERED: LIDOCAINE HCL-MPF 1% 2ML VIAL IV PRN (08:45)
[2019-08-03] MEDS ORDERED: POTASSIUM CHLORIDE 20MEQ/100ML 100 ML IV ONE (08:48)
[2019-08-03] MEDS ORDERED: FAMOTIDINE/PF 20 MG/2 ML VIAL IV SCH (09:00)
[2019-08-03] MEDS ORDERED: ENOXAPARIN SODIUM 30 MG/0.3 ML SQ SCH (09:00)
[2019-08-03 09:28] LABS: ABG BASE EXCESS -15.4 mmol/L (-2.0-3.0); ABG HCO3 10.8 mmol/L (21.0-28.0); ABG OXYGEN SATURATION 95.8 % (95.0-99.0); ABG PCO2 27 mmHg (32-45)
[2019-08-03] MEDS ORDERED: VANCOMYCIN 1GM+NS 250ML 250 ML IV ONE (09:41)
[2019-08-03] MEDS ORDERED: SODIUM CHLORIDE 0.9% 250 ML IV ONE (09:42)
--- NOTE | 2019-08-03 10:30 | NUR ---
PT RECEIVED FROM ED PATIENT RECEIVED FROM ED INTUBATED AND ON LEVOPHED DRIP @ 30 MCG/MIN VIA LEFT AC PERIPHERAL LINE. PATIENT IS AWAKE BUT VERY LETHARGIC AND SLOW TO RESPOND WITH EYE BLINKS/HEAD NODS. BILATERAL PUPILS 5MM AND SLUGGISH REACTIONS. PATIENT IS SEVERELY MOTTLED TO TRUNK, BILATERAL LOWER EXTREMITIES. TEMPERATURE 92 DEGREES, BEAR HUGGER PLACED ON PATIENT. DR JOSE CRUZ MORFIN NOTIFIED THAT PATIENT NEEDS CENTRAL LINE DUE TO RAPID INFUSION OF VASOPRESSORS VIA PERIPHERAL LINE AT MAXIMUM DOSAGE.
[2019-08-03] MEDS ORDERED: SODIUM BICARB 50MEQ 50ML VIAL IV STA (11:00)
[2019-08-03] MEDS ORDERED: SODIUM BICARB 8.4% 50ML SYRING 150 MEQ in DEXTROSE 5%-WATER 1,000 ML IV SCH (11:00)
--- NOTE | 2019-08-03 11:05 | NUR ---
DR MORFIN AT BEDSIDE TO INSERT CENTRAL LINE/LAINA MORFIN NOW AT BEDSIDE TO INSERT CENTRAL LINE NEEDED FOR RAPID INFUSION OF VASOPRESSORS. WHILE PREPARING PATIENT WITH CHLORAPREP HE ASKED TO CHECK GLUCOSE BECAUSE PATIENT WAS LETHARGIC/RESTLESS, AND APPEARED SUDDENLY MORE CYANOTIC. GLUCOSE CHECKED AND FOUND TO BE UNREADABLE @ <10 MG/DL VIA GLUCOMETER. 2 AMPS D50 GIVEN, 3 AMPS BICARB GIVEN LAINA GEORGE CALLED PATIENT NOW IN PEA, COMPRESSIONS STARTED. LEVOPHED AT 30 MCG/MIN, NS WIDE OPEN. PLEASE REFER TO LAINA GEORGE SHEET FOR FURTHER DOCUMENTATION
[2019-08-03] MEDS ORDERED: MORPHINE SULFATE 5 MG/ML VIAL ONE (11:06)
[2019-08-03] MEDS ORDERED: DEXTROSE 50%-WATER 50 ML DISP.SYRIN IV ONE ×2 (11:08→11:09)
[2019-08-03] MEDS ORDERED: VASOPRESSIN 20 UNITS in DEXTROSE 5%-WATER 50 ML IV PRN (11:15)
[2019-08-03] MEDS ORDERED: FLUCONAZOLE 200 MG/NS 100 ML 100 ML IV SCH (11:15)
[2019-08-03] MEDS ORDERED: DEXTROSE 10%-WATER 1,000 ML IV SCH (11:15)
--- NOTE | 2019-08-03 11:24 | NUR ---
LAINA MEDEROS was able to reach Len Horowitz [phone], of pt listed on Face sheet. Mr Horowitz informed of laina alexander and he stated they wanted everything done. on his way to hospital, CM aware
--- NOTE | 2019-08-03 11:30 | NUR ---
ID PLAN NURSE NOTIFIED EX THAT PATIENT IS CRITICAL ASKED IF HE COULD COME IN SAID HE HAD NOT SLEPT AND WAS TIRED. TABATHA MONCADA TRIED SAID SAME THING. LAINA GEORGE CALLED CALLED X SPOUSE AT [phone] TO NOTIFY OF ONGOING CODE DID NOT ANSWER WENT TO VOICE MAIL. LET KNITTED GARMENT FINISHER KNOW. TRIED FROM CELL PHONE X SPOUSE ANSWERED SAID TO KEEP DOING EVERYTHING POSSIBLE AND THAT HE WOULD COME IN. LET NURSING AND DR. BILLINGSLEY KNOW THAT SPOUSE ON WAY PER CONVERSATION. Addendum: 08/03/19 at 1133 by NELIDA FITCH RN CM Amended: Links added.
[2019-08-03] MEDS ORDERED: ETOMIDATE 2 MG/ML 10 ML VIAL IVP ONE (11:38)
[2019-08-03] MEDS ORDERED: SUCCINYLCHOLINE CHLORIDE 20 MG/ML 10 ML VIAL IVP ONE (11:38)
[2019-08-03] MEDS ORDERED: ALBUTEROL SULFATE 0.083% 2.5 MG/3 ML INH IH SCH (12:00)
--- NOTE | 2019-08-03 12:11 | NUR ---
DNR Sw met with pt's who just signed DNR for pt with nurse and Charmaine Brizuela. SW spoke to who states he and pt had years ago but have been back together for years, just never remarried. states they have 2 kids, daughter in [place] and son in [place]. states he is going home to notify children that their mom has passed because as far as he is concerned she is not coming out of this. "keep doing what you are doing, but if her heart stops, let her go" "I said my goodbye last night and again right now". "Call me and update me." Nurse and Charmaine informed of above
[2019-08-03] MEDS ORDERED: NOREPINEPHRINE 4MG/NS 250ML 250 ML IV SCH (12:15)
[2019-08-03 12:36] LABS: TROPONIN I 0.3 ng/mL (0.00-0.06)
[2019-08-03] MEDS ORDERED: ZOSYN 3.375GM+NS 50ML 50 ML IV SCH (13:00)
[2019-08-03] MEDS ORDERED: LIDOCAINE PF 2% 5ML ABBOJECT ONE (13:04)
[2019-08-03 13:13] LABS: MAGNESIUM 43.6 mg/dL (1.80-2.40)
[2019-08-03] MEDS ORDERED: MIDAZOLAM 100MG-0.9% NS 100ML 100 ML IV PRN (13:15)
[2019-08-03] MEDS ORDERED: FENTANYL 2500MCG+NS 250ML 250 ML IV PRN (13:15)
[2019-08-03] MEDS ORDERED: GLUCAGON 1MG KIT 1 MG ML IM PRN (13:30)
[2019-08-03] MEDS ORDERED: DEXTROSE 50%-WATER 50 ML DISP.SYRIN IV PRN (13:30)
[2019-08-03 13:36] LABS: ABG BASE EXCESS -18.5 mmol/L (-2.0-3.0); ABG HCO3 11.8 mmol/L (21.0-28.0); ABG OXYGEN SATURATION 88.2 % (95.0-99.0); ABG PCO2 45 mmHg (32-45)
[2019-08-03 13:39] LABS: MEAN CORPUSCULAR HEMOGLOBIN 30.6 pg (27.0-33.0); MEAN CORPUSCULAR HGB CONC 31.1 g/dL (32.0-36.0); MEAN CORPUSCULAR VOLUME 98.4 fL (79-99); NUCLEATED RED BLOOD CELLS 2.7 % (0.0-0.19); PLATELET COUNT (AUTO) 157 K/uL (130-400); RED BLOOD CELL COUNT(AUTO) 2.12 MIL/uL (4.00-5.50); RED CELL DISTRIBUTION WIDTH 15.5 % (11.0-15.5); WHITE BLOOD COUNT (AUTO) 2.1 K/uL (4.8-10.8)
[2019-08-03 13:46] LABS: CREATININE 1.6 mg/dL (0.5-1.5); POTASSIUM 5.4 mmol/L (3.5-5.1)
[2019-08-03 13:47] LABS: HEMATOCRIT 20.9 % (36-48)
[2019-08-03 14:02] LABS: INR 3.77 (0.85-1.15); PROTHROMBIN TIME 37.6 SEC (9.6-11.6)
[2019-08-03] MEDS ORDERED: NOREPINEPHRINE BITARTRATE 8 MG in SODIUM CHLORIDE 0.9% 250 ML IV PRN (14:30)
[2019-08-03] MEDS ORDERED: LACTATED RINGERS 1000ML 1,000 ML IV SCH (15:00)
[2019-08-03] MEDS ORDERED: SODIUM BICARB 50MEQ 50ML VIAL IV ONE (15:00)
[2019-08-03 15:25] LABS: BAND NEUTROPHILS % (MANUAL) 20 % (0-2); LYMPHOCYTES % (MANUAL) 51 % (22-44); MAN.DIFF COMMENT-IMPRESSION MANUAL DIFFERENTIAL; MONOCYTES % (MANUAL) 2 % (2-9); SEGMENTED NEUTROPHILS % 27 % (40-70)
[2019-08-03 15:28] LABS: PLATELET MORPHOLOGY COMMENT LARGE PLTS PRESENT
[2019-08-03] MEDS ORDERED: EPINEPHRINE 0.1 MG/ML 10 ML SYG IVP ONE ×2 (16:14)
[2019-08-03] MEDS ORDERED: MAGNESIUM SULFATE 1 GM/2 ML VIAL IM ONE (16:14)
[2019-08-03] MEDS ORDERED: SODIUM BICARB 8.4% 50ML SYRINGE IVP ONE (16:14)
[2019-08-03] MEDS ORDERED: CALCIUM CHLORIDE 100 MG/ML 10 ML SYG IVP ONE (16:14)
[2019-08-03 16:44] LABS: TROPONIN I 3.68 ng/mL (0.00-0.06)
== END 2019-08-03 16:15 | disposition expired | DRG 871 ==
LOC: EDH 03:44 → EDHIP 03:45 → 2CH 10:27
PROVIDERS: ADMIT Internal Medicine; ATTEND Internal Medicine
PROC: 02HV33Z Insertion of Infusion Device into Superior Vena Cava, Percutaneous Approach (ICD-10-PCS; principal; 2019-08-03)
PROC: 0W9930Z Drainage of Right Pleural Cavity with Drainage Device, Percutaneous Approach (ICD-10-PCS; 2019-08-03)
PROC: 5A12012 Performance of Cardiac Output, Single, Manual (ICD-10-PCS; 2019-08-03)
PROC: 5A1935Z Respiratory Ventilation, Less than 24 Consecutive Hours (ICD-10-PCS; 2019-08-03)
PROC: 0BH17EZ Insertion of Endotracheal Airway into Trachea, Via Natural or Artificial Opening (ICD-10-PCS; 2019-08-03)
DX: A41.9 Sepsis, unspecified organism (principal); J96.01 Acute respiratory failure with hypoxia; R65.21 Severe sepsis with septic shock; J95.811 Postprocedural pneumothorax; E87.2 Acidosis; N17.9 Acute kidney failure, unspecified; E16.2 Hypoglycemia, unspecified; E78.5 Hyperlipidemia, unspecified; E86.0 Dehydration; E86.1 Hypovolemia; E87.6 Hypokalemia; G89.4 Chronic pain syndrome; I25.10 Atherosclerotic heart disease of native coronary artery without angina pectoris; F19.10 Other psychoactive substance abuse, uncomplicated; I11.0 Hypertensive heart disease with heart failure; I50.9 Heart failure, unspecified; I46.9 Cardiac arrest, cause unspecified; Z66 Do not resuscitate; I25.2 Old myocardial infarction; Z90.49 Acquired absence of other specified parts of digestive tract; Z98.82 Breast implant status; Z82.49 Family history of ischemic heart disease and other diseases of the circulatory system; Z80.9 Family history of malignant neoplasm, unspecified
CPT/HCPCS: 31500; 36415; 36600; 70450; 71045; 74176; 80048; 80053; 80305; 81001; 82435; 82550; 82803; 82947; 82948; 83605; 83735; 83874; 84100; 84132; 84145; 84295; 84484; 85018; 85025; 85027; 85060; 85610; 85730; 87040; 87088; 92950; 93005; 94002; 99291; 99292; C1751; G0378; G0480; G0481; J0171; J0330; J1450; J1650; J1956; J2001; J2270; J2543; J2704; J3370; J3475; J3480; J3490; J7030; J7060; J7070